=== PATIENT | male | born 1930 | race Caucasian/White ===

== ENCOUNTER 2016-11-18 11:04 | Emergency (ER) | payer MEDICARE ==
[2016-11-18] MEDS ORDERED: LIDOCAINE 2% UROJECT 10 ML ONE (11:20)
[2016-11-18 11:47] LABS: URINE APPEARANCE HAZY; URINE BILIRUBIN NEGATIVE (NEGATIVE); URINE BLOOD 1+ (NEGATIVE); URINE COLOR AMBER; URINE GLUCOSE (UA) NEGATIVE (NEGATIVE); URINE LEUKOCYTE ESTERASE NEGATIVE (NEGATIVE); URINE NITRITE NEGATIVE (NEGATIVE); URINE PROTEIN 1+ (NEGATIVE); URINE UROBILINOGEN NORMAL (0-1 mg/dl)
[2016-11-18 11:49] LABS: ABSOLUTE NEUTROPHIL COUNT 8.6 K/mm3 (1.8-7.7); BASO # 0.2 K/mm3 (0.0-0.2); BASO % 1.3 % (0.2-1.0); EOS # 0.4 (0.0-0.5); EOS % 3.5 % (0.9-2.9); HEMATOCRIT 48.4 % (32.0-52.0); HEMOGLOBIN 15.4 gm/l (14.0-18.0); IMM NEUT # 0.1 K/mm3 (0-0.2); IMM NEUT% 0.6 % (0-1); LYMPH # 2.3 (1.0-4.8); LYMPH % 18.5 % (15-45); MEAN CELL VOLUME 91.3 fl (80.0-94.0); MEAN CORPUSCULAR HEMOGLOBIN 29.1 pg (27.0-31.0); MEAN CORPUSCULAR HGB CONC 31.8 g/dl (33.0-37.0); MEAN PLATELET VOLUME 10.6 fl (7.4-10.4); MONO % 8.2 % (4-12); NEUT % 67.9 % (43-75); PLATELET COUNT 197 K/mm3 (130-400); RED CELL DISTRIBUTION WIDTH 15.8 % (11.5-14.5)
[2016-11-18 11:57] LABS: URINE BACTERIA RARE; URINE WBC NEG /hpf
[2016-11-18 12:07] LABS: ALB/GLOB RATIO 1.5 (>1.0); ALBUMIN 4.3 gm/dL (3.5-5.7); CALCIUM 9.6 mg/dL (8.6-10.3)
[2016-11-18] MEDS ORDERED: LACTATED RINGERS 1,000 ML ONE (12:21)
--- NOTE | 2016-11-18 13:12 | CT ---
HEAD W/O CON: 11/18/2016 12:23 PM CLINICAL HISTORY: Altered mental status. COMPARISON: 11/28/2015 TECHNIQUE: Contiguous axial 5 mm images from skull base to the vertex were obtained without IV contrast. Sagittal and coronal reformations with bone algorithm images were also obtained at this time. CT DI:: 51.7 DLP: 964.8 FINDINGS: Infarct: None Extra axial spaces: Normal in size and morphology for the patient's age. Hemorrhage: None. Ventricular system: Compensatory dilation of the cerebral ventricles.. Basal cisterns: Normal. Cerebral parenchyma: Encephalomalacia from the patient's left occipital infarction is again identified. Small vessel occlusive change. Lacunar infarcts are again noted in the basal ganglia bilaterally. Moderate atrophy. Midline shift: None. Cerebellum: Normal. Brainstem: Normal. OTHER: Calvarium: Normal. Vascular system: Normal. Visualized Paranasal sinuses and Mastoid air cells: Clear. Visualized Orbits and regional soft tissues: Normal. IMPRESSION: Stable appearance to the patient's small vessel occlusive change, left occipital infarction and other areas of lacunar infarct. No acute intracranial process. Findings were called to Dr. Guo at approximately 1308 hours on 11/18/2016.
--- NOTE | 2016-11-18 13:13 | RAD ---
11/18/2016 1:09 PM CHEST - 2 VIEWS History: Increased weakness and slurred speech Comparison: 11/28/2015 chest x-ray Findings: Two views of the chest are obtained. The lungs demonstrates prominence to the perihilar vasculature which may relate to bronchovascular crowding from the low volumes though venous congestion, similar appearance. The cardiomediastinal silhouette is unremarkable.. The osseous structures are intact.. Median sternotomy wires and prosthetic valve annulus. IMPRESSION: Low volumes with bronchovascular crowding versus venous congestion. Postsurgical changes as above.
== END 2016-11-18 15:22 | disposition home or self-care (01) ==
LOC: ED 11:04
DX: R41.0 Disorientation, unspecified (principal); R53.1 Weakness; I51.9 Heart disease, unspecified; F03.90 Unspecified dementia, unspecified severity, without behavioral disturbance, psychotic disturbance, mood disturbance, and anxiety; E11.9 Type 2 diabetes mellitus without complications; Z86.73 Personal history of transient ischemic attack (TIA), and cerebral infarction without residual deficits; Z79.84 Long term (current) use of oral hypoglycemic drugs
CPT/HCPCS: 85025; 80053; 84484; 81001; 71020; 70450; 99284 ×2; 96360; 96361 ×2; 51701; A9270; J7120

== ENCOUNTER 2016-12-20 12:43 | Inpatient (IN) | payer MEDICARE ==
[2016-12-20] MEDS ORDERED: LACTATED RINGERS 1,000 ML ONE (13:17)
[2016-12-20] MEDS ORDERED: ACETAMINOPHEN 325 MG SUP PR ONE (13:17)
[2016-12-20 13:35] LABS: ALB/GLOB RATIO 1.6 (>1.0); ALBUMIN 4.3 gm/dL (3.5-5.7); CALCIUM 9.1 mg/dL (8.6-10.3); MAGNESIUM 1.6 mg/dL (1.9-2.7)
--- NOTE | 2016-12-20 13:38 | CT ---
HEAD W/O CON History: Fever with tremors. Comparison: To 2016. Procedure: 1 mm axial images were obtained through the head from the vertex to the base of the skull without intravenous contrast. Stacked reconstructed 5 mm images were then obtained in the axial, coronal and sagittal planes. Findings: The lateral ventricles, cerebral sulci and sylvian fissures are prominent though similar to the appearance on prior exam. There is a large area of encephalomalacia within the left posterior parietal-occipital region with compensatory prominence of the atria of the left lateral ventricle. No evidence of midline shift is seen. No mass or mass effect is identified. No evidence of intra or extra-axial fluid collections or hemorrhage is visualized. Periventricular deep white matter low-attenuation changes are observed. The basilar cisterns remain uneffaced. The posterior fossa structures are unremarkable. Bone windows demonstrate no acute osseous abnormalities. Impression: 1. No findings of acute intracranial hemorrhage. 2. Diffuse cerebral atrophy. 3. Encephalomalacia within the left parietal-occipital region from chronic infarction within appearance similar to that seen on prior examination. 4. Periventricular deep white matter low-attenuation changes most consistent with small vessel ischemia considering patient age.
[2016-12-20 13:44] LABS: ABSOLUTE NEUTROPHIL COUNT 14.6 K/mm3 (1.8-7.7); BASO # 0.1 K/mm3 (0.0-0.2); BASO % 0.4 % (0.2-1.0); EOS # 0.2 (0.0-0.5); EOS % 1.3 % (0.9-2.9); HEMATOCRIT 45.4 % (32.0-52.0); HEMOGLOBIN 14.7 gm/l (14.0-18.0); IMM NEUT # 0.1 K/mm3 (0-0.2); IMM NEUT% 0.7 % (0-1); LYMPH # 1.3 (1.0-4.8); LYMPH % 7.8 % (15-45); MEAN CELL VOLUME 92.1 fl (80.0-94.0); MEAN CORPUSCULAR HEMOGLOBIN 29.8 pg (27.0-31.0); MEAN CORPUSCULAR HGB CONC 32.4 g/dl (33.0-37.0); MEAN PLATELET VOLUME 11.4 fl (7.4-10.4); MONO # 0.8 (0.0-0.8); MONO % 4.4 % (4-12); NEUT % 85.4 % (43-75); PLATELET COUNT 162 K/mm3 (130-400); RED CELL DISTRIBUTION WIDTH 16.3 % (11.5-14.5)
[2016-12-20] MEDS ORDERED: LIDOCAINE 2% UROJECT 10 ML ONE (13:47)
[2016-12-20 14:13] LABS: INR 1.16; PROTHROMBIN TIME 12.3 SECONDS (9.3-11.4)
[2016-12-20 14:20] LABS: PH,URINE 6.5 (5.0-8.0); SPECIFIC GRAVITY 1.015 (1.001-1.030); URINE APPEARANCE HAZY; URINE BILIRUBIN NEGATIVE (NEGATIVE); URINE BLOOD 4+ (NEGATIVE); URINE COLOR PINK; URINE GLUCOSE (UA) NEGATIVE (NEGATIVE); URINE LEUKOCYTE ESTERASE 1+ (NEGATIVE); URINE NITRITE NEGATIVE (NEGATIVE); URINE PROTEIN 1+ (NEGATIVE); URINE UROBILINOGEN NORMAL (0-1 mg/dl)
[2016-12-20 14:22] LABS: URINE RBC >100 /hpf
[2016-12-20 14:26] LABS: URINE BACTERIA 1+
--- NOTE | 2016-12-20 15:12 | RAD ---
History: Fever with runny nose. Confusion. Comparison: 11/18/2016 Technique: 2 views Findings: 2 views of the chest demonstrate a low inspiratory volume. There is evidence of prior median sternotomy and valvular replacement. The heart size is stable. Scattered linear foci are present though are similar to the appearance on prior examination. No definite gross consolidation, effusion or pneumothorax is seen. The hilar and mediastinal structures are stable. Impression: 1. A lower story volume. 2. Scattered bilateral linear foci similar to the appearance on prior examination. 3. Prior median sternotomy and valvular replacement.
[2016-12-20] MEDS ORDERED: CEFTRIAXONE 1 GRAM DUPLEX 50 ML IV ONE (15:50)
[2016-12-20] MEDS ORDERED: DOXYCYCLINE HYCLATE 100 MG in NS 0.9% (MINI-BAG PLUS) 100 ML IV ONE (16:30)
[2016-12-20] MEDS ORDERED: DOXYCYCLINE HYCLATE 100 MG IV VIAL ONE (16:41)
[2016-12-20] MEDS ORDERED: SODIUM CHLORIDE 0.9% 100 ML IV ONE (16:42)
[2016-12-20] MEDS ORDERED: MENTHOL/CETYLPYRD 1 EACH LOZENGE PO PRN (17:47)
[2016-12-20] MEDS ORDERED: ACETAMINOPHEN 325 MG TABLET PO PRN (17:47)
[2016-12-20] MEDS ORDERED: BLISTEX LIPSTICK 1 EACH TP PRN (17:47)
[2016-12-20 17:52] VITALS: BMI 28.3
[2016-12-20] MEDS ORDERED: ALBUTEROL NEB 2.5 MG/3 ML VIAL.NEB NEB PRN (17:52)
[2016-12-20] MEDS ORDERED: INSULIN ASPART (DOSE) 100 UNITS/1 ML SUB-Q PRN (17:56)
[2016-12-20] MEDS ORDERED: MAGNESIUM SULFATE 2 G/50 ML 2 G in Premix (Water) 50 ml 1 EACH IV ONE (19:00)
[2016-12-20] MEDS ORDERED: PUMP TUBING ONE (19:22)
[2016-12-20] MEDS: SODIUM CHLORIDE 0.9% 100 ML IV PRN (19:31)
--- NOTE | 2016-12-20 19:50 | HP ---
CARLOS MANUEL CLIFFORD [id number] : 1930 DATE OF ADMISSION: December 20, 2016 IDENTIFICATION: Mr. Clifford is an 86-year-old followed by Dr. Yo. CHIEF COMPLAINT: Altered mental status. HISTORY OF PRESENT ILLNESS: Mr. Clifford is reported by his to have come down with cold symptoms, primarily rhinorrhea about two days ago. He was otherwise acting normally, eating and exercising but then today developed chills and complaints of feeling cold. He did eat his breakfast and walked around the house today, but then developed rigors and inability to stand and confusion. He was brought to [facility] Emergency Room where he was found to have signs of sepsis and infiltrate on chest x-ray. He was treated with ceftriaxone and doxycyline in the emergency department and referred to the hospitalist service. REVIEW OF SYSTEMS: HEENT: He has had rhinorrhea. RESPIRATORY: Family has not noted coughing. CARDIAC: No complaints. GASTROINTESTINAL: Normal appetite, normal bowel movement today. GENITOURINARY: His has noted some blood in his diapers. He has urinary incontinence. MUSCULOSKELETAL: No complaints. CONSTITUTIONAL: He has had fever and chills. PAST MEDICAL HISTORY: 1. Cerebrovascular disease. His first stroke was in 2005. He has residual dominant right-sided weakness with some expressive aphasia and dysphagia which improved. He has had transient ischemic attacks since then and evidence of multiple small vessel strokes on CT imaging of the brain. 2. Benign essential hypertension. 3. Hyperlipidemia. 4. Diabetes mellitus type 2. 5. Chronic kidney disease stage 3 secondary to diabetes. 6. Coronary artery disease with non-ST elevation myocardial infarction in 2008. 7. Chronic diastolic heart failure. Last echocardiogram in our records is from July,, showing ejection fraction of 55 to 60%. 8. Paroxysmal atrial fibrillation with episodes of tachycardia. 9. Gout. 10. Allergic rhinitis. 11. Gastroesophageal reflux disease with history of hiatal hernia and El's esophagus. 12. Nephrolithiasis. 13. Bacterial endocarditis requiring mitral valve replacement in 2004. 14. Recurrent urinary tract infections. 15. Colon cancer treated surgically in 2002. 16. Dementia, probably a combination of vascular dementia and Alzheimer's disease. 17. Hypothyroidism on replacement therapy. PAST SURGICAL HISTORY: 1. Bioprosthetic mitral valve replacement in 2004. 2. Spinal surgery in 1953. 3. Partial colectomy in 2002. 4. Cardiac catheterization in 2008. 5. Multiple cystoscopies and ureteral stents due to kidney stones. 6. He has also had lithotripsy. ALLERGIES: REPORTED TO: 1. GABAPENTIN. 2. LEVOFLOXACIN. 3. OMEPRAZOLE. 4. TAMSULOSIN. 5. VYTORIN. 6. FLUOXETINE. 7. SIMVASTATIN. MEDICATIONS: 1. Aspirin 325 mg orally daily. 2. Metformin 500 mg orally twice daily. 3. Metoprolol tartrate 50 mg orally twice daily. 4. Ranitidine 300 mg orally nightly. 5. Donepezil 5 mg orally nightly. 6. Cetirizine 10 mg orally daily. 7. Cyanocobalamine 1000 mcg orally daily. 8. Levothyroxine 25 mcg orally daily. 9. Pravastatin 20 mg orally nightly. 10. Docusate sodium 100 mg orally nightly. HABITS: He is a former tobacco chewer but quit 25 or 30 years ago. Rarely has a glass of wine. 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 They have five children. He does have a POLST form which indicates FULL CODE status. FAMILY HISTORY: Positive for stroke. PHYSICAL EXAMINATION: GENERAL: This is a well-developed, well-nourished elderly gentleman. He is partially responsive following commands and occasionally speaks an intelligible word. VITAL SIGNS: Temperature 99.2 degrees Fahrenheit, was as high as 102.3 in the emergency department, pulse 63, blood pressure 135/59, respiratory rate 20, oxygen saturation 96% on room air. HEENT: He does not cooperate with eye exam. Oropharynx is dry. NECK: No jugular venous distention or bruits. CHEST: Poor air movement but no wheezes or rhonchi appreciated. HEART: Is regular, 2/6 systolic murmur. ABDOMEN: Soft, no tenderness, no organomegaly. Normal bowel tones. GENITALIA: Uncircumcised male. There is erythema at the foreskin. No open wounds appreciated. EXTREMITIES: Trace edema on the right, none on the left. Moderate dorsalis pedis pulses. NEUROLOGIC: As above, he is poorly responsive, not oriented and has right-sided paraplegia. LABORATORY DATA: White blood cell count is 17.1 with 85% neutrophils, hemoglobin and hematocrit 14.7 and 45.4, platelets 162, INR 1.16, lactate 3.3. Sodium 139, potassium 4.4, chloride 101, CO2 28, BUN 25, creatinine 1.3, glucose 89. Magnesium was low at 1.6, bilirubin 1.3, liver enzymes are normal. Urinalysis, specific gravity 1.015, 1+ protein, 4+ blood, negative nitrite, 1+ leukocyte esterase. Microscopic shows greater than 100 red blood cells, 10 to 15 white blood cells, 3 to 5 epithelial cells and 1+ bacteria. Blood and urine cultures have been set up. Influenza A and B serology are negative. RADIOLOGY: 1. CT of the brain, no acute findings. There is diffuse atrophy and encephalomalacia from his previous strokes. 2. Chest x-ray, low volume exam. Prior median sternotomy and valvular replacement. Scattered linear foci seen as previously. ELECTROCARDIOGRAM: Shows supraventricular rhythm, rate of 81. ASSESSMENT: Mr. Clifford is an 86-year-old who presents with presumed bacterial community acquired pneumonia and severe sepsis with fever, leukocytosis and acute metabolic encephalopathy. He has underlying cerebrovascular disease, coronary artery disease, diabetes, chronic kidney disease, hypertension, chronic diastolic heart failure and hypothyroidism. He has hematuria which is chronic rather than acute. May have a urinary tract infection, and he has hypomagnesemia. PLAN: 1. Admit to medical/surgical floor. 2. IV hydration and repeat lactate level. 3. Antibiotic treatment with ceftriaxone and doxycyline. 4. Supplemental oxygen and nebulizer treatments as needed. 5. Continue outpatient medications except for metformin. 6. Check blood sugars and cover with insulin as needed. 7. IV magnesium replacement. 8. Physical therapy and occupational therapy evaluation and treatment. 9. FULL CODE status. 10. Venous thrombosis prophylaxis with mechanical means.
[2016-12-20] MEDS: DOCUSATE SODIUM 100 MG CAPSULE PO SCH ×2 (20:48→21:05)
[2016-12-20] MEDS: METOPROLOL TARTRATE 50 MG TABLET PO SCH ×2 (20:48→21:05)
[2016-12-20] MEDS: PRAVASTATIN SODIUM 20 MG TABLET PO SCH ×2 (20:48→21:05)
[2016-12-20] MEDS: DONEPEZIL HCL 5 MG TABLET PO SCH ×2 (20:48→21:05)
[2016-12-20] MEDS: FAMOTIDINE 20 MG TABLET PO SCH ×2 (20:48→21:05)
[2016-12-20] MEDS: ALBUTEROL/IPRATROPIUM 2.5/0.5 MG 3 ML/EACH DOSE NEB SCH (23:31)
[2016-12-21] MEDS: DOXYCYCLINE HYCLATE 100 MG in NS 0.9% (MINI-BAG PLUS) 100 ML IV SCH ×2 (04:24→16:33)
[2016-12-21 06:07] LABS: ABSOLUTE NEUTROPHIL COUNT 10.6 K/mm3 (1.8-7.7); BASO # 0.1 K/mm3 (0.0-0.2); BASO % 0.6 % (0.2-1.0); EOS # 0.2 (0.0-0.5); EOS % 1.4 % (0.9-2.9); HEMATOCRIT 39.5 % (32.0-52.0); HEMOGLOBIN 13.1 gm/l (14.0-18.0); IMM NEUT # 0.1 K/mm3 (0-0.2); IMM NEUT% 0.6 % (0-1); LYMPH # 0.9 (1.0-4.8); MEAN CELL VOLUME 91.4 fl (80.0-94.0); MEAN CORPUSCULAR HEMOGLOBIN 30.3 pg (27.0-31.0); MEAN CORPUSCULAR HGB CONC 33.2 g/dl (33.0-37.0); MEAN PLATELET VOLUME 10.6 fl (7.4-10.4); MONO # 0.7 (0.0-0.8); MONO % 5.2 % (4-12); NEUT % 85.2 % (43-75); PLATELET COUNT 112 K/mm3 (130-400)
[2016-12-21 06:23] LABS: CALCIUM 8.5 mg/dL (8.6-10.3); MAGNESIUM 1.8 mg/dL (1.9-2.7)
--- NOTE | 2016-12-21 07:33 | PDOC43 ---
- Subjective Chief Complaint: Altered mental status and chills Refused meds and oral intake overnight. Appears comfortable, rouses and mumbles but not intelligible. - Objective Vital Signs Temperature 97.5 F 12/21/16 02:15 Pulse Rate 67 12/21/16 02:15 Respiratory Rate 16 12/21/16 02:16 Blood Pressure 157/74 12/21/16 02:15 O2 Saturation by Pulse Oximetry 96 12/21/16 02:15 Oxygen Delivery Method Nasal Cannula Oxygen Flow Rate 2 Intake and Output 12/20/16 12/21/16 12/22/16 06:59 06:59 06:59 Intake Total 1070 Output Total 505 Balance 565 General: No Alert, No Oriented x3, No Cooperative, No Acute Distress HEENT: Atraumatic, Other (MM dry) Lungs: Other (ronchi on left) Cardiovascular: Regular Rate and Rhythm Abdomen: Soft, Normal Bowel Sounds, No Tenderness, No Masses Extremities: Edema (trace on right only), Normal Pulses Skin: Normal Color Laboratory 12/21/16 05:30 12/21/16 05:30 12/21/16 12/20/16 12/20/16 05:30 22:17 18:09 RBC 4.32 L RDW 16.0 H POC Capillary Glucose 105 H 131 H Calcium 8.5 L Magnesium 1.8 L Current Medications: Current meds reviewed in EMR. - Problems: Assessment/Plan (1) Pneumonia Qualifiers: Pneumonia type: due to unspecified organism Laterality: left Lung location: unspecified part of lung Qualifier Code: (J18.9) Pneumonia, unspecified organism Status: AcuteAssessment/Plan: Presumed bacterial pneumonia present on admit. WBC improved. Continue treatment with ceftriaxone and doxycycline pending culture results. (2) Sepsis Status: AcuteAssessment/Plan: Severe sepsis due to pneumonia, improved. (3) Acute metabolic encephalopathy Status: AcuteAssessment/Plan: Due to pneumonia and sepsis with increased confusion and decreased ability to communicate over his baseline dementia. (4) Dementia Qualifiers: Dementia type: vascular dementia Dementia behavioral disturbance: with behavioral disturbance Qualifier Code: (F01.51) Vascular dementia with behavioral disturbance Status: ChronicAssessment/Plan: Continue donepizil and reorient as needed (5) Late effects of CVA (cerebrovascular accident) Status: ChronicAssessment/Plan: with chronic dominant right side weakness, OT/PT consult. (6) HTN (hypertension) Qualifiers: Hypertension type: essential hypertension Qualifier Code: (I10) Essential (primary) hypertension Status: ChronicAssessment/Plan: BP elevated today, follow and increase metoprolol if persistent. (7) CAD (coronary artery disease) Qualifiers: Coronary Disease-Associated Artery/Lesion type: [place] artery [place] vs. transplanted heart: [place] heart Associated angina: without angina Qualifier Code: (I25.10) Atherosclerotic heart disease of [place] coronary artery without angina pectoris Status: ChronicAssessment/Plan: stable, no current ACS (8) DM2 (diabetes mellitus, type 2) Qualifiers: Diabetes mellitus complication status: with kidney complications Diabetes mellitus complication detail: with chronic kidney disease Diabetes mellitus intermediate designer insulin use: without fci use Chronic kidney disease stage: stage 3 (moderate) Qualifier Code: (E11.22) Type 2 diabetes mellitus with diabetic chronic kidney disease Status: ChronicAssessment/Plan : BG stable, continue correction dose insulin. Metformin on hold with acute illness and hospitalization. (9) Diastolic CHF, chronic Status: ChronicAssessment/Plan: stable, no current exacerbation. (10) CKD (chronic kidney disease) stage 3, GFR 30-59 ml/min Status: ChronicAssessment/Plan: at baseline (11) Hematuria Status: ChronicAssessment/Plan: Chronic, consider outpatient w/u. May have UTI but urine contaminated with many epithelial cells. Culture pending, any likely infection would be covered by abx given for pneumonia. VTE Prophylaxis: Mechanical Disposition: Home vs SNF rehab in 1-3 days.
[2016-12-21] MEDS: ALBUTEROL/IPRATROPIUM 2.5/0.5 MG 3 ML/EACH DOSE NEB SCH ×4 (08:12→22:48)
[2016-12-21] MEDS: LEVOTHYROXINE SODIUM 25 MCG TABLET PO SCH (08:30)
[2016-12-21] MEDS: Magnesium Oxide 400 MG TABLET PO SCH ×2 (10:38→20:14)
[2016-12-21] MEDS: CYANOCOBALAMIN (VITAMIN B-12) 250 MCG TABLET PO SCH (10:38)
[2016-12-21] MEDS: METOPROLOL TARTRATE 50 MG TABLET PO SCH ×2 (10:38→20:13)
[2016-12-21] MEDS: CETIRIZINE HCL 10 MG TABLET PO SCH (10:39)
[2016-12-21] MEDS: ASPIRIN (ENTERIC COATED) 325 MG TABLET.EC PO SCH (10:39)
[2016-12-21] MEDS: ONDANSETRON 4 MG/2ML 2 ML VIAL IV PRN ×2 (15:16→20:06)
[2016-12-21] MEDS: CEFTRIAXONE 1 GRAM DUPLEX 1 G in Premix (D5W) 50 ml 1 EACH IV SCH (15:45)
[2016-12-21] MEDS: SODIUM CHLORIDE 0.9% 100 ML IV PRN (17:44)
[2016-12-21] MEDS: DOCUSATE SODIUM 100 MG CAPSULE PO SCH (20:13)
[2016-12-21] MEDS: PRAVASTATIN SODIUM 20 MG TABLET PO SCH (20:14)
[2016-12-21] MEDS: FAMOTIDINE 20 MG TABLET PO SCH (20:14)
[2016-12-21] MEDS: DONEPEZIL HCL 5 MG TABLET PO SCH (20:14)
[2016-12-22] MEDS: DOXYCYCLINE HYCLATE 100 MG in NS 0.9% (MINI-BAG PLUS) 100 ML IV SCH ×2 (04:36→17:05)
[2016-12-22 05:56] LABS: ABSOLUTE NEUTROPHIL COUNT 13.7 K/mm3 (1.8-7.7); BASO # 0.1 K/mm3 (0.0-0.2); BASO % 0.4 % (0.2-1.0); EOS # 0.1 (0.0-0.5); EOS % 0.5 % (0.9-2.9); HEMOGLOBIN 13.8 gm/l (14.0-18.0); IMM NEUT # 0.2 K/mm3 (0-0.2); LYMPH % 6.2 % (15-45); MEAN CELL VOLUME 92.3 fl (80.0-94.0); MEAN CORPUSCULAR HEMOGLOBIN 29.6 pg (27.0-31.0); MEAN CORPUSCULAR HGB CONC 32.1 g/dl (33.0-37.0); MEAN PLATELET VOLUME 10.6 fl (7.4-10.4); MONO # 0.8 (0.0-0.8); MONO % 5.1 % (4-12); NEUT % 86.8 % (43-75); PLATELET COUNT 135 K/mm3 (130-400); RED CELL DISTRIBUTION WIDTH 16.2 % (11.5-14.5)
[2016-12-22 06:18] LABS: CALCIUM 8.4 mg/dL (8.6-10.3); MAGNESIUM 1.8 mg/dL (1.9-2.7)
[2016-12-22] MEDS: LEVOTHYROXINE SODIUM 25 MCG TABLET PO SCH ×3 (07:32→09:21)
[2016-12-22] MEDS: ALBUTEROL/IPRATROPIUM 2.5/0.5 MG 3 ML/EACH DOSE NEB SCH ×4 (08:07→20:20)
[2016-12-22] MEDS: CETIRIZINE HCL 10 MG TABLET PO SCH (09:14)
[2016-12-22] MEDS: CYANOCOBALAMIN (VITAMIN B-12) 250 MCG TABLET PO SCH (09:14)
[2016-12-22] MEDS: METOPROLOL TARTRATE 50 MG TABLET PO SCH ×2 (09:14→20:47)
[2016-12-22] MEDS: Magnesium Oxide 400 MG TABLET PO SCH ×2 (09:14→20:47)
[2016-12-22] MEDS: ASPIRIN (ENTERIC COATED) 325 MG TABLET.EC PO SCH (09:15)
[2016-12-22] MEDS ORDERED: PUMP TUBING ONE (09:30)
[2016-12-22] MEDS: D5 1/2NS with 20 mEq KCL 1,000 ML IV SCH ×2 (09:34→19:38)
[2016-12-22] MEDS ORDERED: IV START KIT ONE (10:02)
[2016-12-22] MEDS ORDERED: SODIUM CHLORIDE 0.9% FLUSH 10 ML ONE (10:02)
--- NOTE | 2016-12-22 14:58 | PDOC43 ---
- Subjective Chief Complaint: Altered mental status and chills Subjective: Denies Adequate Oral Intake (refusing breakfast and meds this am), Denies Fever - Objective Vital Signs Temperature 99.4 F 12/22/16 14:21 Pulse Rate 84 12/22/16 14:21 Respiratory Rate 18 12/22/16 14:21 Blood Pressure 158/84 12/22/16 14:21 O2 Saturation by Pulse Oximetry 95 12/22/16 14:21 Oxygen Delivery Method Room Air Oxygen Flow Rate 0 Intake and Output 12/21/16 12/22/16 12/23/16 06:59 06:59 06:59 Intake Total 1070 240 Output Total 505 1650 245 Balance 565 -1410 -245 General: Alert, Cooperative, No Acute Distress Lungs: Clear to Auscultation Bilaterally Cardiovascular: Regular Rate and Rhythm Abdomen: Soft, Normal Bowel Sounds, Non-Distended, No Tenderness Skin: Warm, Dry, Intact Laboratory 12/22/16 05:30 12/22/16 05:30 12/22/16 12/22/16 12/22/16 11:59 07:34 05:30 RBC 4.66 L MCHC 32.1 L RDW 16.2 H BUN 34 H POC Capillary Glucose 159 H 120 H Calcium 8.4 L Magnesium 1.8 L 12/21/16 12/21/16 21:36 18:40 RBC MCHC RDW BUN POC Capillary Glucose 147 H 165 H Calcium Magnesium Current Medications: Current meds reviewed in EMR. - Problems: Assessment/Plan (1) Pneumonia Qualifiers: Pneumonia type: due to unspecified organism Laterality: left Lung location: unspecified part of lung Qualifier Code: (J18.9) Pneumonia, unspecified organism Status: AcuteAssessment/Plan: Presumed bacterial pneumonia present on admit. WBC improved. Continue treatment with ceftriaxone and doxycycline pending culture results. (2) Sepsis Status: AcuteAssessment/Plan: Severe sepsis due to pneumonia, improved. (3) Acute metabolic encephalopathy Status: AcuteAssessment/Plan: Due to pneumonia and sepsis with increased confusion and decreased ability to communicate over his baseline dementia. (4) Dementia Qualifiers: Dementia type: vascular dementia Dementia behavioral disturbance: with behavioral disturbance Qualifier Code: (F01.51) Vascular dementia with behavioral disturbance Status: ChronicAssessment/Plan: Continue donepizil and reorient as needed (5) Late effects of CVA (cerebrovascular accident) Status: ChronicAssessment/Plan: with chronic dominant right side weakness, OT/PT consult. (6) HTN (hypertension) Qualifiers: Hypertension type: essential hypertension Qualifier Code: (I10) Essential (primary) hypertension Status: ChronicAssessment/Plan: BP elevated today, follow and increase metoprolol if persistent. (7) CAD (coronary artery disease) Qualifiers: Coronary Disease-Associated Artery/Lesion type: [place] artery [place] vs. transplanted heart: [place] heart Associated angina: without angina Qualifier Code: (I25.10) Atherosclerotic heart disease of [place] coronary artery without angina pectoris Status: ChronicAssessment/Plan: stable, no current ACS (8) DM2 (diabetes mellitus, type 2) Qualifiers: Diabetes mellitus complication status: with kidney complications Diabetes mellitus complication detail: with chronic kidney disease Diabetes mellitus custodial insulin use: without continuous churn buttermaker use Chronic kidney disease stage: stage 3 (moderate) Qualifier Code: (E11.22) Type 2 diabetes mellitus with diabetic chronic kidney disease Status: ChronicAssessment/Plan : BG stable, continue correction dose insulin. Metformin on hold with acute illness and hospitalization. (9) Diastolic CHF, chronic Status: ChronicAssessment/Plan: stable, no current exacerbation. (10) CKD (chronic kidney disease) stage 3, GFR 30-59 ml/min Status: ChronicAssessment/Plan: at baseline (11) Hematuria Status: ChronicAssessment/Plan: Chronic, consider outpatient w/u. Suspect due to UTI caused by E. Coli sens to rocephin. VTE Prophylaxis: Mechanical Disposition: Home vs SNF rehab in am.
[2016-12-22] MEDS: CEFTRIAXONE 1 GRAM DUPLEX 1 G in Premix (D5W) 50 ml 1 EACH IV SCH (16:07)
[2016-12-22] MEDS: PRAVASTATIN SODIUM 20 MG TABLET PO SCH (20:47)
[2016-12-22] MEDS: DONEPEZIL HCL 5 MG TABLET PO SCH (20:47)
[2016-12-22] MEDS: DOCUSATE SODIUM 100 MG CAPSULE PO SCH (20:47)
[2016-12-22] MEDS: FAMOTIDINE 20 MG TABLET PO SCH (20:51)
[2016-12-23] MEDS: D5 1/2NS with 20 mEq KCL 1,000 ML IV SCH ×2 (03:39→13:40)
[2016-12-23] MEDS: DOXYCYCLINE HYCLATE 100 MG in NS 0.9% (MINI-BAG PLUS) 100 ML IV SCH (04:54)
[2016-12-23] MEDS: LEVOTHYROXINE SODIUM 25 MCG TABLET PO SCH (07:18)
[2016-12-23] MEDS: ALBUTEROL/IPRATROPIUM 2.5/0.5 MG 3 ML/EACH DOSE NEB SCH ×2 (07:53→11:25)
[2016-12-23] MEDS: METOPROLOL TARTRATE 50 MG TABLET PO SCH (08:31)
[2016-12-23] MEDS: ASPIRIN (ENTERIC COATED) 325 MG TABLET.EC PO SCH (08:31)
[2016-12-23] MEDS: Magnesium Oxide 400 MG TABLET PO SCH (08:31)
[2016-12-23] MEDS: CETIRIZINE HCL 10 MG TABLET PO SCH (08:31)
[2016-12-23] MEDS: CYANOCOBALAMIN (VITAMIN B-12) 250 MCG TABLET PO SCH (08:31)
[2016-12-23 09:04] LABS: BASO # 0.1 K/mm3 (0.0-0.2); BASO % 0.6 % (0.2-1.0); EOS # 0.4 (0.0-0.5); EOS % 3.2 % (0.9-2.9); HEMOGLOBIN 12.4 gm/l (14.0-18.0); IMM NEUT # 0.1 K/mm3 (0-0.2); IMM NEUT% 0.8 % (0-1); LYMPH # 1.5 (1.0-4.8); LYMPH % 12.6 % (15-45); MEAN CELL VOLUME 92.9 fl (80.0-94.0); MEAN CORPUSCULAR HEMOGLOBIN 29.5 pg (27.0-31.0); MEAN CORPUSCULAR HGB CONC 31.8 g/dl (33.0-37.0); MEAN PLATELET VOLUME 11.3 fl (7.4-10.4); MONO # 0.8 (0.0-0.8); MONO % 6.4 % (4-12); NEUT % 76.4 % (43-75); PLATELET COUNT 152 K/mm3 (130-400); RED CELL DISTRIBUTION WIDTH 16.8 % (11.5-14.5)
[2016-12-23 09:30] LABS: CALCIUM 8.1 mg/dL (8.6-10.3)
--- NOTE | 2016-12-23 12:47 | DS ---
Alireza Clifford [id number] DATE OF ADMISSION: 12/20/2016 DATE OF DISCHARGE: 12/23/2016 DISCHARGE DIAGNOSES: 1. Bacterial pneumonia in the left lung presumed to be community acquired. 2. Severe sepsis due to the pneumonia. 3. Acute metabolic encephalopathy due to the pneumonia and the sepsis. 4. Vascular dementia without behavioral disturbance. 5. Late effects of a cerebrovascular accident with some chronic dominant right sided weakness. 6. Chronic essential hypertension. 7. Coronary artery disease involving the [place] vessels without angina. 8. Adult onset diabetes treated with oral medications. 9. Chronic diastolic heart failure. 10. Chronic stage III kidney disease. 11. Urinary tract infection due to Escherichia coli causing some mild hematuria. TO SUMMARIZE THE ADMISSION AND HOSPITAL COURSE: The patient is an 86-year-old male who presented with altered mental status and history of upper respiratory symptoms including cough and nasal congestion. He was brought to the [facility] Emergency Department where he was diagnosed with pneumonia felt to be in the left base, mainly a clinical diagnosis. He was febrile up to 102 degrees with pulse of 63. CBC showed a white blood cell count elevation at 17,000. Lactate was elevated at 3.3. Creatinine was 1.3. Urinalysis showed over 100 red blood cells, 10 to 15 white blood cells. Influenza A and B serologies were negative. Magnesium was slightly low at 1.6. CT of the head showed diffuse atrophy and some encephalomalacia due to prior strokes, but no acute abnormalities. He was admitted by the hospitalist service and treated with Rocephin and doxycycline. He was given magnesium replacement with fluids. He remained afebrile throughout his stay. His encephalopathy improved with treatment and hydration. He exhibited weakness beyond his baseline and was felt to be a good candidate for [facility]. He was accepted at [facility] prior to eventual goal of discharging home. PHYSICAL EXAMINATION: VITALS: At discharged showed a temperature of 98.8, pulse 77, blood pressure 119/63, respirations 18, oxygen saturation is 92% on room air. Body mass index 28.3, weight is 86.9 kg. GENERAL: This is a well-developed, well-nourished male in no acute distress. HEENT: Unremarkable. LUNGS: Clear to auscultation bilaterally. CARDIOVASCULAR: Reveals a regular rate and rhythm without a murmur. ABDOMEN: Soft, nontender, nondistended with positive bowel sounds. EXTREMITIES: Show no peripheral edema. NEUROLOGIC: Nonfocal. LABORATORY STUDIES: On the day of discharge showed a white blood cell count improved to 11.8, hemoglobin stable at 12.4, platelet count is 152,000. Chemistry profile showed a sodium of 137, potassium 4.6, creatinine of 1.2. DISPOSITION: [facility]. CODE STATUS: Full code as per POLST form. REHAB POTENTIAL: Good. Physical therapy and occupational therapy have been ordered to evaluate and treat as indicated. ACTIVITY: Weightbearing status as tolerated. Activity as tolerated. DIET: Diabetic with regular texture. He will get bowel care per house protocol, skin care per house protocol, podiatry care per house protocol. He will have a two step PPD placed if indicated. Pneumovax and flu vaccinations as indicated. DISCHARGE MEDICATIONS: He will on: 1. Tylenol 650 mg every 4 hours as needed for pain or temp greater than 101 degrees. 2. Aluminum hydroxide/magnesium hydroxide 15 to 30 mL every 4 hours as needed for gastrointestinal upset. 3. Colace 100 mg at bedtime. 4. Pravastatin 20 mg at bedtime. 5. Levothroid 25 mcg daily. 6. Vitamin B12 1000 mcg by mouth daily. 7. Zyrtec 10 mg by mouth daily. 8. Aricept 5 mg by mouth at bedtime. 9. Ranitidine 300 mg by mouth at bedtime. 10. Lopressor 50 mg by mouth twice daily. 11. Metformin 500 mg by mouth twice daily. 12. Enteric coated aspirin 325 mg by mouth daily. 13. New prescriptions include doxycycline 100 mg by mouth twice daily for 7 more days and cefdinir 300 mg by mouth twice daily for 7 more days. FOLLOW UP: Has been scheduled with his primary care provider, Dr. Aaron Yo on January 12 at 3:00 p.m. JOB: [id number] CC: Dr. Aaron Yo
[2016-12-23 14:20] VITALS: BP 124/64
== END 2016-12-23 16:05 | DRG 871 ==
LOC: ED 12:43 → MS 15:57
PROVIDERS: ADMIT Family Medicine; ATTEND Family Medicine
DX: A41.89 Other specified sepsis (principal); J15.9 Unspecified bacterial pneumonia; G93.41 Metabolic encephalopathy; I69.951 Hemiplegia and hemiparesis following unspecified cerebrovascular disease affecting right dominant side; I13.0 Hypertensive heart and chronic kidney disease with heart failure and stage 1 through stage 4 chronic kidney disease, or unspecified chronic kidney disease; I50.32 Chronic diastolic (congestive) heart failure; N39.0 Urinary tract infection, site not specified; R65.20 Severe sepsis without septic shock; F01.50 Vascular dementia, unspecified severity, without behavioral disturbance, psychotic disturbance, mood disturbance, and anxiety; I25.10 Atherosclerotic heart disease of native coronary artery without angina pectoris; Z79.84 Long term (current) use of oral hypoglycemic drugs; N18.3 Chronic kidney disease, stage 3 (moderate); B96.20 Unspecified Escherichia coli [E. coli] as the cause of diseases classified elsewhere; E11.22 Type 2 diabetes mellitus with diabetic chronic kidney disease; R31.9 Hematuria, unspecified

== ENCOUNTER 2016-12-25 14:12 | Emergency (ER) | payer MEDICARE ==
[2016-12-25] MEDS ORDERED: IOPAMIDOL 370 (76%) IV.SOLN 150 ML IV ONE (14:13)
[2016-12-25] MEDS ORDERED: MIDAZOLAM HCL 1 MG/ML 2ML VIAL ONE ×2 (14:48→18:34)
[2016-12-25 15:43] LABS: ABSOLUTE NEUTROPHIL COUNT 11.2 K/mm3 (1.8-7.7); BASO # 0.1 K/mm3 (0.0-0.2); BASO % 0.7 % (0.2-1.0); EOS # 0.2 (0.0-0.5); EOS % 1.2 % (0.9-2.9); HEMOGLOBIN 11.3 gm/l (14.0-18.0); IMM NEUT # 0.3 K/mm3 (0-0.2); IMM NEUT% 1.8 % (0-1); LYMPH # 1.4 (1.0-4.8); LYMPH % 10.4 % (15-45); MEAN CORPUSCULAR HEMOGLOBIN 29.5 pg (27.0-31.0); MEAN CORPUSCULAR HGB CONC 31.4 g/dl (33.0-37.0); MONO # 0.7 (0.0-0.8); MONO % 4.8 % (4-12); NEUT % 81.1 % (43-75); PLATELET COUNT 225 K/mm3 (130-400); RED CELL DISTRIBUTION WIDTH 16.8 % (11.5-14.5)
[2016-12-25 16:02] LABS: ALB/GLOB RATIO 1.3 (>1.0); ALBUMIN 3.3 gm/dL (3.5-5.7); CALCIUM 8.9 mg/dL (8.6-10.3)
[2016-12-25 16:05] LABS: VENOUS BLOOD GAS HCO3 21.5 mmol/L (22.0-27.0)
[2016-12-25 16:06] LABS: VENOUS BLOOD GAS BASE EXCESS -2.9 mmol/L (-2.0-2.0)
--- NOTE | 2016-12-25 16:43 | RAD ---
Exam: Portable chest COMPARISON: 12/20/2016, 11/18/2016 INDICATION: Weakness. Recent diagnosis of pneumonia. FINDINGS: A semierect AP portable view of the chest again demonstrates postsurgical changes of median sternotomy and valve replacement. Lung volumes remain low, precluding evaluation lung bases. There is no pulmonary edema, focal airspace disease or pleural effusion. IMPRESSION: Hypoventilatory exam. There is no radiographic evidence of pneumonia.
[2016-12-25 17:42] LABS: URINE BILIRUBIN NEGATIVE (NEGATIVE); URINE BLOOD NEGATIVE (NEGATIVE); URINE GLUCOSE (UA) NEGATIVE (NEGATIVE); URINE LEUKOCYTE ESTERASE TRACE (NEGATIVE); URINE NITRITE NEGATIVE (NEGATIVE); URINE PROTEIN NEGATIVE (NEGATIVE); URINE UROBILINOGEN NORMAL (0-1 mg/dl)
[2016-12-25 17:44] LABS: URINE APPEARANCE CLEAR; URINE COLOR YELLOW
[2016-12-25 17:51] LABS: URINE BACTERIA FEW; URINE EPITHELIAL CELLS 0-1 /hpf; URINE RBC 0-1 /hpf
--- NOTE | 2016-12-25 19:34 | CT ---
Name: CARLOS MANUEL GALVIN Exam: CT Angiogram of the chest with contrast Comparison: None Clinical History:Weakness and shortness of breath Procedure: Helical CT using multidetector technique was applied to the chest during rapid intravenous administration of 80 cc of Isovue-370. MIP reconstructions were obtained on the CT scanner. Automated dose reduction technique was used to minimize patient radiation dose. Findings: CT angiogram of the chest (contrast enhanced): This exam is degraded due to motion artifact. The patient could not follow breathing instructions. Heart is not enlarged. There is no pericardial effusion. Aorta is atherosclerotic. 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 The ascending aorta is 4 cm in diameter. There is a normal 3 great vessel arrangement. There is no evidence for dissection. Limited views of the thyroid gland show no abnormality. She was made via the right. There is no suspicious axillary or mediastinal adenopathy. Small amount of hilar lymph tissue is present. There is no pulmonary embolus in the large central vessels. The motion artifact degrades the exam therefore tertiary branches and more peripheral branches are poorly evaluated on this exam. There are tiny bilateral pleural effusions. There is no suspicious nodule or mass and no pneumothorax. Failure is not excluded on this exam. There is been prior midline sternotomy. 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 There is a small hiatal hernia. Diffuse thickening of the esophagus is present. Multiple gallstones are identified. There is a partially imaged 4 mm nonobstructing calculus in the upper pole of the left kidney. Also the upper pole of left kidney, there are 2 indeterminate hypodensities measuring 3.5 and 2.3 cm in size. Follow-up ultrasound is recommended. Impression: 1. Motion artifact moderately degrades sensitivity of this exam. There is no large/central pulmonary embolus 2. Tiny bilateral pleural effusions. Failure is not excluded on this exam 3. 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 There is no evidence for dissection 4. Cholelithiasis 5. 4 mm partially imaged nonobstructing calculus upper pole left kidney 6. 3.5 and 2.3 cm partially imaged indeterminate hypodensities in the upper pole left kidney. Cysts are suspected. Follow-up ultrasound is recommended 7. Diffuse thickening of the esophagus. Follow-up as clinically indicated 8. Small hiatal hernia 9. Prior CABG Note:The above report was uploaded to [facility]'s electronic medical records system at 1929 hours.
== END 2016-12-25 22:54 | disposition home or self-care (01) ==
LOC: ED 14:12
DX: E86.0 Dehydration (principal); R53.1 Weakness; R06.02 Shortness of breath; E11.9 Type 2 diabetes mellitus without complications; F03.90 Unspecified dementia, unspecified severity, without behavioral disturbance, psychotic disturbance, mood disturbance, and anxiety; Z86.73 Personal history of transient ischemic attack (TIA), and cerebral infarction without residual deficits
CPT/HCPCS: 85379; 82803; 85025; 87040 ×2; 87086; 80053; 84484; 81001; 71010; 71275; 99284 ×2; 96372; 96374; 96361 ×5; 93005; J2250 ×2; Q9967